=== PATIENT | male | born 1975 | race Caucasian/White ===

== ENCOUNTER → 2016-11-12 | Outpatient (CLI) | payer BC ==
--- NOTE | 2016-11-12 14:43 | DI ---
MRI BRAIN W/WO CN,11/12/2016 1:50 PM: Clinical History: Slurred speech. Previous Exam: CT head performed November 06, 2016 Findings: Multiplanar MR images are obtained through the brain both before and after the intravenous administra tion of 20 mL of OptiMARK, and demonstrate normal, symmetric ventricles and other CSF containing spac es. There is no mass, hemorrhage nor midline shift. There are a few small periventricular foci of increased FLAIR and T2 signal. There is no abnormally restricted diffusion. The paranasal sinuses are unremarkable. The intraorbital structures are also unremarkable. There is r ightward deviation of the bony nasal septum. There is no abnormal enhancement. Impression: No acute intracranial pathology.
== END ==
LOC: MRI 13:45
PROVIDERS: ATTEND Student in an Organized Health Care Education/Training Program
DX: R47.81 Slurred speech (principal)
CPT/HCPCS: 70553; A9579

== ENCOUNTER → 2017-01-16 | Outpatient (CLI) | payer BC | LOC: LAB 13:27 | PROVIDERS: ATTEND Nurse Practitioner Family | DX: L03.319 Cellulitis of trunk, unspecified (principal); W57.XXXA Bitten or stung by nonvenomous insect and other nonvenomous arthropods, initial encounter | CPT/HCPCS: 87070; 87077; 87185; 87186; 87205 ==